=== PATIENT | female | born 1995 ===

== ENCOUNTER 2019-12-12 00:10 | Inpatient (IN) | payer MEDICAID ==
[~2019-12-12] VITALS: Ht 162.6 cm; Wt 65.8 kg
[2019-12-12] MEDS ORDERED: LACT. RINGERS/OXYTOCIN 20UNITS 1,000 ML IV SCH ×2 (01:02→06:20)
[2019-12-12] MEDS ORDERED: PREN-153 OR (01:07)
[2019-12-12] MEDS ORDERED: BUTORPHANOL TARTRATE 2 MG/1 ML VIAL IV PRN (01:15)
[2019-12-12] MEDS ORDERED: LIDOCAINE 2%HCL (LOCAL ANESTH.) INJ 20ML MDV ID ONE (01:15)
[2019-12-12] MEDS ORDERED: METHYLERGONOVINE MALEATE 0.2 MG/ML AMP IM PRN (01:15)
[2019-12-12] MEDS ORDERED: PHISODERM TOP SOLN 240ML BTL TOP PRN (01:15)
[2019-12-12] MEDS ORDERED: DERMOPLAST 60ML BOTTLE TOP PRN (01:15)
[2019-12-12] MEDS ORDERED: PENICILLIN G POT 5MIL/D5 50ML 50 ML IV ONE (01:15)
[2019-12-12] MEDS ORDERED: WITCH HAZEL-GLYCERIN PAD TOP PRN (01:15)
[2019-12-12] MEDS ORDERED: CARBOPROST TROMETHAMINE 250 MCG/1ML VIAL IM PRN (01:15)
[2019-12-12] MEDS ORDERED: LACTATED RINGER'S 1,000 ML IV SCH (01:45)
[2019-12-12 02:13] LABS: Urine Amorphous Crystal FEW /hpf (None Seen); Urine Bacteria FEW /hpf (None Seen); Urine Blood Negative /uL (Negative); Urine Specific Gravity 1.005 (1.001-1.035); Urine WBC 6 /hpf (0 - 5)
[2019-12-12 02:16] LABS: Basophils # (auto) 0 10 ^3/uL (0-0.2); Basophils % (auto) 0.2 % (0.0-2.0); Eosinophils # (auto) 0.1 10 ^3/uL (0-0.8); Eosinophils % (auto) 0.7 % (0.0-7.0); Hematocrit 34.9 % (36.0-46.0); Hemoglobin 11.3 g/dL (12.2-16.2); Lymphocytes # (auto) 1.4 10 ^3/uL (0.4-5.4); Lymphocytes % (auto) 18.3 % (10.0-50.0); Mean Corpuscular Hemoglobin 27.7 pg (28.0-32.0); Mean Corpuscular Hgb Conc. 32.3 g/dL (32.0-36.0); Mean Corpuscular Volume 85.7 fL (80.0-100.0); Monocytes # (auto) 0.9 10 ^3/uL (0-1.3); Monocytes % (auto) 10.9 % (0.0-12.0); Neutrophils # (auto) 5.5 10 ^3/uL (1.6-8.6); Neutrophils % (auto) 69.9 % (37.0-80.0); Nucleated Red Blood Cells % 0.1 %; Platelet Count (auto) 173 10^3/uL (140-450); Red Blood Cells 4.08 10^6/uL (4.0-5.20); Red Cell Distribution Width 13.4 % (11.8-14.3); White Blood Cell 7.9 10^3/uL (4.4-10.8)
[2019-12-12 02:23] LABS: INR 0.91 (0.9-1.15); Partial Thromboplastin Time 23.6 sec (23.64-32.05)
[2019-12-12 02:26] LABS: Albumin 2.9 g/dL (3.4-5.0); BUN/Creatinine Ratio 7.5; Calcium 9.2 mg/dL (8.5-10.1)
[2019-12-12 02:27] LABS: Alcohol, Urine < 3.0 mg/dL (0-5); Amphetamine Screen, Urine NEGATIVE (NEGATIVE); Barbiturate Scree,Urine NEGATIVE (NEGATIVE); Benzodiazephine Screen, Urine NEGATIVE (NEGATIVE); Cannabinoid Screen, Urine NEGATIVE (NEGATIVE); Cocaine Screen, Urine NEGATIVE (NEGATIVE); Opiate Scree,Urine NEGATIVE (NEGATIVE); Phencyclidine Screen, Urine NEGATIVE (NEGATIVE)
[2019-12-12 02:33] LABS: Bilirubin, Total 0.3 mg/dL (0.2-1.0); Total Protein 7.1 g/dL (6.4-8.2)
[2019-12-12] MEDS ORDERED: LACTATED RINGER'S 1,000 ML IV ONE (02:55)
[2019-12-12] MEDS ORDERED: NALOXONE HCL 0.4 MG/ML VIAL IV ONE (03:00)
[2019-12-12] MEDS ORDERED: ePHEDrine SULFATE 50 MG/ML AMP IV ONE (03:00)
[2019-12-12] MEDS ORDERED: fentaNYL 200mCg/100ml W ROPIVA 100 ML EPI SCH (03:00)
[2019-12-12] MEDS ORDERED: fentaNYL CITRATE 100 MCG/2 ML VL IV ONE (03:00)
[2019-12-12] MEDS ORDERED: LIDOCAINE HCL 2 %PF INJ 10ML AMP IJ ONE (03:00)
--- NOTE | 2019-12-12 04:00 | NUR ---
Bottle-feeding Education: Patient encouraged to breastfeed. Benefits of and the risk of providing formula to was discussed. Patient verbalized understanding of the benefits and is aware of risk and insists on bottle-feeding. Formula provided and instruction on formula preparation from the [facility] Beginning booklet reviewed with patient.
[2019-12-12] MEDS ORDERED: PENICILLIN G POTASSIUM 2,500,000 UNITS in D5W 5% 50 ML IV SCH (05:15)
[2019-12-12] MEDS ORDERED: LACT. RINGERS/OXYTOCIN 20UNITS 500 ML IV ONE (05:20)
--- NOTE | 2019-12-12 05:27 | NUR ---
Ambulation: Patient OOB with standby assistance by RN. Patient ambulated to bathroom with steady gait. Patient able to void without difficulty. Pericare teaching provided with returned demonstration by patient. Clean gown provided and bed linen changed. Patient ambulated back to bed with steady gait and no distress noted.
[2019-12-12] MEDS ORDERED: ACETAMINOPHEN 325 MG TAB PO PRN (05:30)
[2019-12-12] MEDS: IBUPROFEN 600 MG TAB PO PRN ×3 (05:39→17:37)
--- NOTE | 2019-12-12 06:15 | NUR ---
Report received from Tamir Mar RN on stable pt. Assumed care. Addendum: 12/12/19 at 0630 by Jessica Dennis RN Amended: Links added.
[2019-12-12 07:12] VITALS: BP 132/75
--- NOTE | 2019-12-12 10:06 | NUR ---
Anel ZEE at bedside to assess social service consult for + THC on labs and limited PNC. Pt has a negative UDS upon this admission. Addendum: 12/12/19 at 1834 by Jessica Dennis RN Anel ZEE at bedside to assess social service consult for + THC on labs and limited PNC. Pt has a negative UDS upon this admission. UDS on was not done due to patient's negative UDS.
--- NOTE | 2019-12-12 10:48 | NUR ---
Assessment Patient is a 24-year old female who is alert and oriented. Social Service consult regarding History of positive THC and limited care. Nurse Jessica informed me patient and baby were not positive on THC on this admission. Baby was negative for drug screen. Discussed with patient UDS and source of positive results. Patient stated she only used THC a few months ago due to lack of sleep. Patient stated she took her pills during her first 7 months of and when she moved from [place] to [place] with her mom she lost her pills and was unable to find them. Patient resides with her mother Josey and will assistance with baby upon discharge. Patient has all supplies as well as car seat for baby and will be bottle feed. Patient has medical insurance for herself and baby and will be following up with provider appt post discharge. Pt has transportation home upon discharge. Due to being history of drug use CPS will not be contacted. Patient has family support. Addendum: 12/12/19 at 1050 by CARLOS AYALA Amended: Links added.
[2019-12-12 11:30] VITALS: BP 121/71
[2019-12-12 15:30] VITALS: BP 113/64
--- NOTE | 2019-12-12 18:15 | NUR ---
Report given to Alma Martinez RN on stable pt. Relinquished care. Addendum: 12/12/19 at 1825 by Jessica Dennis RN Amended: Links added.
[2019-12-12 19:00] VITALS: BP 115/79
[2019-12-12 22:47] VITALS: BP 113/73
[2019-12-13] MEDS: IBUPROFEN 600 MG TAB PO PRN (02:12)
[2019-12-13 03:30] VITALS: BP 112/68
[2019-12-13 04:06] LABS: RPR Non Reactive (Non Reactive)
[2019-12-13 07:10] VITALS: BP 131/73
[2019-12-13 11:15] VITALS: BP 116/71
--- NOTE | 2019-12-13 12:15 | NUR ---
Discharge: Discharge instructions given as ordered. Pt encouraged to follow up with [facility] as instructed. All questions and concerns addressed. Patient verbalized understanding. Medication reconciliation completed and copy given to patient. All required/requested vaccines given and copies of vaccinations given to patient. Patient encouraged to prepare to depart unit.
--- NOTE | 2019-12-13 13:30 | NUR ---
Discharge: Patient ambulated to vehicle with all personal belongings, accompanied by staff and family member. No distress noted at time of departure, no adverse changes in status since initial assessment.
== END 2019-12-13 13:30 | disposition home or self-care (01) | DRG 560 ==
LOC: LDRP 00:10 → OBSVTOIN 01:00
PROVIDERS: ADMIT Specialist; ATTEND Specialist
PROC: 10E0XZZ Delivery of Products of Conception, External Approach (ICD-10-PCS; principal; 2019-12-12)
DX: O42.92 Full-term premature rupture of membranes, unspecified as to length of time between rupture and onset of labor (principal); O62.0 Primary inadequate contractions; Z37.0 Single live birth; Z3A.40 40 weeks gestation of pregnancy
CPT/HCPCS: 36415; 59025; 59409; 80053; 80307; 81001; 81002; 84112; 85025; 85610; 85730; 86592; 86703; 86850; 86900; 86901; 96365; 96366; G0378; J2540; J2590; J7060